=== PATIENT | male | born 1990 | race Caucasian/White ===

== ENCOUNTER 2018-01-12 12:43 | Inpatient (IN) | payer OTHER ==
[~2018-01-12] VITALS: Ht 182.9 cm; Wt 190.0 kg
[~2018-01-12 12:43] MED LIST: ETOMIDATE 40 MG/20 ML ONE; MIDAZOLAM 1 MG/ML, 5ML ONE; PROPOFOL 10 MG/ML, 100ML IV ONE; SUCCINYLCHOLINE 20 MG/ML, 10ML ONE; VECURONIUM 10 MG ONE
[2018-01-12] MEDS ORDERED: ALBUTEROL/IPRATROPIUM 2.5MG/0.5MG, 3 ML ONE (13:13)
[2018-01-12 13:25] LABS: MEAN CORPUSCULAR HEMOGLOBIN 30.2 pg (27.5-34.5); MEAN CORPUSCULAR VOLUME 88.9 fL (81-97); MEAN PLATELET VOLUME 9.7 fL (7.4-10.4); PLATELET COUNT 298 x10^3/uL (130-400); RED BLOOD COUNT 6.14 x10^6/uL (4.38-5.82); RED CELL DISTRIBUTION WIDTH 13.6 % (9.4-14.8)
[2018-01-12] MEDS ORDERED: ALBUTEROL/IPRATROPIUM 2.5MG/0.5MG, 3 ML NPPB ONE (13:30)
[2018-01-12] MEDS ORDERED: SODIUM CHLORIDE FLUSH 10ML SYR IVF ONE (13:30)
[2018-01-12 13:33] LABS: INTERNATIONAL NORMALIZED RATIO 1.04 (0.93-1.1); PROTHROMBIN TIME 10.8 Seconds (9.6-11.5)
[2018-01-12 13:35] LABS: ALANINE AMINOTRANSFERASE 66 U/L (12-78); ALBUMIN 3.4 g/dL (3.4-5.0); ANION GAP 9 mmol/L (5-15); CHLORIDE 105 mmol/L (98-107); CREATININE 0.95 mg/dL (0.7-1.3)
[2018-01-12] MEDS ORDERED: methylPREDNISolone SOD SUCC 125 MG/2 ML ONE (13:38)
[2018-01-12 13:39] LABS: ALKALINE PHOSPHATASE 79 U/L (45-117); BILIRUBIN,TOTAL 0.5 mg/dL (0.2-1.0); TOTAL PROTEIN 7.9 g/dL (6.4-8.2); TROPONIN I 0.057 ng/mL (0.000-0.045)
[2018-01-12] MEDS ORDERED: CEFTRIAXONE PMX 1GM/50ML 50 ML ONE (13:39)
[2018-01-12 13:44] LABS: BASOPHILS # (AUTO) 0.19 x10^3/uL (0-0.1); BASOPHILS % (AUTO) 1 % (0-1); EOSINOPHILS # (AUTO) 0.02 x10^3/uL (0-0.4); EOSINOPHILS % (AUTO) 0 % (1-7); LYMPHOCYTES # (AUTO) 1.29 x10^3/uL (1-3.4); LYMPHOCYTES % (AUTO) 7 % (22-44); MD SCAN; MONOCYTES # (AUTO) 0.81 x10^3/uL (0.2-0.8); MONOCYTES % (AUTO) 4 % (2-9); NEUTROPHILS % (AUTO) 88 % (42-75)
[2018-01-12] MEDS ORDERED: methylPREDNISolone SOD SUCC 125 MG/2 ML IVP ONE (14:00)
[2018-01-12] MEDS ORDERED: VANCOMYCIN PER PHARMACY MC PRN (14:00)
[2018-01-12] MEDS ORDERED: CEFTRIAXONE 1,000 MG in SODIUM CHLORIDE 0.9% 50 ML IVPB ONE (14:00)
[2018-01-12] MEDS ORDERED: VANCOMYCIN 2,400 MG in SODIUM CHLORIDE 0.9% 500 ML IV ONE (14:30)
[2018-01-12] MEDS ORDERED: ONDANSETRON 2MG/ML, 2ML IVPush ONE ×2 (15:00)
[2018-01-12] MEDS ORDERED: VECURONIUM 10 MG IVPush ONE (15:30)
[2018-01-12] MEDS ORDERED: MIDAZOLAM 1 MG/ML, 5ML IVPush ONE (15:30)
[2018-01-12] MEDS ORDERED: SUCCINYLCHOLINE 20 MG/ML, 10ML IVPush ONE (15:30)
[2018-01-12] MEDS ORDERED: SODIUM CHLORIDE FLUSH 10ML SYR IVF PRN (15:30)
[2018-01-12] MEDS ORDERED: ETOMIDATE 40 MG/20 ML IVPush ONE (15:30)
[2018-01-12] MEDS ORDERED: PROPOFOL 100 ML IV ONE (15:33)
[2018-01-12] MEDS ORDERED: ENOXAPARIN 40 MG/0.4 ML SQ SCH (16:30)
[2018-01-12] MEDS ORDERED: BISACODYL 10 MG SUPP PR PRN ×2 (16:30→17:00)
[2018-01-12] MEDS ORDERED: CEFTRIAXONE 1,000 MG IM SCH (16:30)
[2018-01-12] MEDS ORDERED: ONDANSETRON 2MG/ML, 2ML IVPush PRN (16:30)
[2018-01-12] MEDS ORDERED: DOCUSATE 100 MG CAPSULE PO PRN (16:30)
[2018-01-12] MEDS ORDERED: POLYETHYLENE GLYCOL 17 GM PACKET PO PRN (16:30)
[2018-01-12] MEDS ORDERED: LIDODERM 5% PATCH TD PRN (16:30)
[2018-01-12] MEDS ORDERED: ENALAPRILAT 1.25 MG/ML, 2ML IVPush PRN (16:30)
[2018-01-12 16:53] LABS: CULTURE INDICATED? YES; MICROSCOPIC INDICATED
[2018-01-12 17:00] LABS: AMPHETAMINE SCREEN, URINE Negative (Negative); BARBITURATE SCREEN, URINE Negative (Negative); BENZODIAZEPINE SCREEN, URINE Negative (Negative); CANNABINOID SCREEN, URINE Positive (Negative); COCAINE SCREEN, URINE Positive (Negative); METHADONE SCREEN, URINE Negative (Negative); OPIATE SCREEN, URINE Negative (Negative)
[2018-01-12] MEDS ORDERED: LACTULOSE 20 GM/30 ML UDC NG PRN (17:00)
[2018-01-12] MEDS ORDERED: GLUCAGON 1 MG IM PRN (17:00)
[2018-01-12] MEDS ORDERED: SENNOSIDES 8.8 MG/5 ML ORAL SOL NG PRN (17:00)
[2018-01-12] MEDS ORDERED: DEXTROSE 4 GM TAB.CHEW PO PRN (17:00)
[2018-01-12] MEDS ORDERED: DEXTROSE 50%, 50ML SYRINGE IVPush PRN (17:00)
[2018-01-12] MEDS ORDERED: PHARMACY MAY ADJ FOR RENAL FX MC SCH (17:00)
[2018-01-12] MEDS ORDERED: SENNA/DOCUSATE TABLET NG PRN (17:00)
[2018-01-12] MEDS ORDERED: SODIUM CHLORIDE 0.9% 1,000ML IVBOLUS ONE (17:00)
[2018-01-12] MEDS: methylPREDNISolone SOD SUCC 125 MG/2 ML IVPush SCH ×2 (17:24→23:08)
[2018-01-12] MEDS: THIAMINE 100MG TABLET PO SCH (17:24)
[2018-01-12] MEDS: HEPARIN 5,000 UNITS/ML, 1ML SQ SCH (17:24)
[2018-01-12] MEDS: INSULIN LISPRO 100 UNITS/ML, PEN SQ-INSULIN SCH ×2 (17:37→21:00)
[2018-01-12] MEDS: AMPICILLIN/SULBACTAM 3 GM in SODIUM CHLORIDE 0.9% 100 ML IV SCH ×2 (17:40→23:02)
[2018-01-12] MEDS: PROPOFOL 100 ML IV PRN ×4 (17:40→23:01)
[2018-01-12] MEDS: AZITHROMYCIN 500 MG in SODIUM CHLORIDE 0.9% 250 ML IV SCH (17:40)
[2018-01-12] MEDS: ALBUTEROL/IPRATROPIUM 2.5MG/0.5MG, 3 ML INLINE SCH ×2 (19:13→22:18)
[2018-01-12] MEDS: MIDAZOLAM HCL 50 MG in SODIUM CHLORIDE 0.9% 240 ML IV PRN (19:42)
[2018-01-12] MEDS: SODIUM CHLORIDE FLUSH 10ML SYR IVF SCH (21:40)
[2018-01-13] MEDS: HEPARIN 5,000 UNITS/ML, 1ML SQ SCH ×3 (00:59→16:33)
[2018-01-13] MEDS: PROPOFOL 100 ML IV PRN ×8 (00:59→23:06)
[2018-01-13] MEDS: MIDAZOLAM HCL 50 MG in SODIUM CHLORIDE 0.9% 240 ML IV PRN (02:16)
[2018-01-13] MEDS: ALBUTEROL/IPRATROPIUM 2.5MG/0.5MG, 3 ML INLINE SCH ×6 (02:58→22:25)
[2018-01-13 03:58] VITALS: BP 110/55
[2018-01-13 04:35] LABS: BASOPHILS # (AUTO) 0.05 x10^3/uL (0-0.1); BASOPHILS % (AUTO) 0 % (0-1); EOSINOPHILS % (AUTO) 0 % (1-7); LYMPHOCYTES # (AUTO) 0.92 x10^3/uL (1-3.4); LYMPHOCYTES % (AUTO) 6 % (22-44); MD NO; MEAN CORPUSCULAR HEMOGLOBIN 29.6 pg (27.5-34.5); MEAN CORPUSCULAR HGB CONC 33.3 g/dL (33.2-36.2); MEAN CORPUSCULAR VOLUME 88.7 fL (81-97); MEAN PLATELET VOLUME 9.5 fL (7.4-10.4); MONOCYTES # (AUTO) 0.36 x10^3/uL (0.2-0.8); MONOCYTES % (AUTO) 2 % (2-9); NEUTROPHILS # (AUTO) 14.39 x10^3/uL (1.8-6.8); NEUTROPHILS % (AUTO) 92 % (42-75); PLATELET COUNT 268 x10^3/uL (130-400); RED BLOOD COUNT 5.56 x10^6/uL (4.38-5.82); RED CELL DISTRIBUTION WIDTH 13.5 % (9.4-14.8)
[2018-01-13] MEDS: AMPICILLIN/SULBACTAM 3 GM in SODIUM CHLORIDE 0.9% 100 ML IV SCH ×4 (04:35→23:09)
[2018-01-13] MEDS: methylPREDNISolone SOD SUCC 125 MG/2 ML IVPush SCH ×4 (04:36→23:06)
[2018-01-13 04:45] LABS: ALBUMIN 2.9 g/dL (3.4-5.0); ANION GAP 7 mmol/L (5-15); CALCIUM 8.5 mg/dL (8.5-10.1); CHLORIDE 108 mmol/L (98-107)
[2018-01-13 04:49] LABS: ALANINE AMINOTRANSFERASE 44 U/L (12-78); ALKALINE PHOSPHATASE 61 U/L (45-117); BILIRUBIN,TOTAL 0.3 mg/dL (0.2-1.0); CREATININE 0.97 mg/dL (0.7-1.3); TOTAL PROTEIN 6.9 g/dL (6.4-8.2)
[2018-01-13 04:53] LABS: HEMOGLOBIN A1C 5.9 % (4.2-6.3)
[2018-01-13] MEDS: INSULIN LISPRO 100 UNITS/ML, PEN SQ-INSULIN SCH ×4 (05:26→20:55)
[2018-01-13] MEDS: PANTOPRAZOLE 40 MG IV IVPush SCH (07:29)
[2018-01-13] MEDS ORDERED: PANTOPRAZOLE 40 MG IV IV SCH (09:00)
[2018-01-13] MEDS: SODIUM CHLORIDE FLUSH 10ML SYR IVF SCH ×2 (09:30→19:29)
[2018-01-13] MEDS: QUETIAPINE 25MG TABLET PO SCH ×2 (09:30→16:33)
[2018-01-13] MEDS: LIDOCAINE-MPF 1%, 2ML ENDO PRN (11:43)
[2018-01-13] MEDS ORDERED: LIDOCAINE 1%, 2ML INFIL ONE (12:00)
[2018-01-13] MEDS: AZITHROMYCIN 500 MG in SODIUM CHLORIDE 0.9% 250 ML IV SCH (16:01)
[2018-01-13] MEDS: THIAMINE 100MG TABLET PO SCH (16:33)
[2018-01-14] MEDS: QUETIAPINE 25MG TABLET PO SCH ×4 (01:02→23:52)
[2018-01-14] MEDS: HEPARIN 5,000 UNITS/ML, 1ML SQ SCH ×3 (01:02→16:30)
[2018-01-14] MEDS: PROPOFOL 100 ML IV PRN ×11 (01:05→23:00)
[2018-01-14] MEDS: ALBUTEROL/IPRATROPIUM 2.5MG/0.5MG, 3 ML INLINE SCH ×6 (02:16→22:04)
[2018-01-14] MEDS: FENTANYL PF 100 MCG/2ML IVPush PRN ×4 (02:46→22:50)
[2018-01-14 04:00] VITALS: BP 115/50
[2018-01-14 04:44] LABS: ANION GAP 4 mmol/L (5-15); BASOPHILS # (AUTO) 0.03 x10^3/uL (0-0.1); BASOPHILS % (AUTO) 0 % (0-1); CALCIUM 8.7 mg/dL (8.5-10.1); CHLORIDE 110 mmol/L (98-107); CREATININE 0.81 mg/dL (0.7-1.3); EOSINOPHILS # (AUTO) 0.01 x10^3/uL (0-0.4); EOSINOPHILS % (AUTO) 0 % (1-7); LYMPHOCYTES # (AUTO) 0.96 x10^3/uL (1-3.4); LYMPHOCYTES % (AUTO) 7 % (22-44); MD NO; MEAN CORPUSCULAR HEMOGLOBIN 30.2 pg (27.5-34.5); MEAN CORPUSCULAR HGB CONC 33.8 g/dL (33.2-36.2); MEAN CORPUSCULAR VOLUME 89.3 fL (81-97); MEAN PLATELET VOLUME 9.8 fL (7.4-10.4); MONOCYTES # (AUTO) 0.89 x10^3/uL (0.2-0.8); MONOCYTES % (AUTO) 6 % (2-9); NEUTROPHILS # (AUTO) 12.19 x10^3/uL (1.8-6.8); NEUTROPHILS % (AUTO) 87 % (42-75); PLATELET COUNT 263 x10^3/uL (130-400); RED CELL DISTRIBUTION WIDTH 13.6 % (9.4-14.8)
[2018-01-14] MEDS: AMPICILLIN/SULBACTAM 3 GM in SODIUM CHLORIDE 0.9% 100 ML IV SCH ×4 (05:07→23:49)
[2018-01-14] MEDS: methylPREDNISolone SOD SUCC 125 MG/2 ML IVPush SCH (05:07)
[2018-01-14] MEDS: INSULIN LISPRO 100 UNITS/ML, PEN SQ-INSULIN SCH (05:08)
[2018-01-14] MEDS: PANTOPRAZOLE 40 MG IV IVPush SCH (08:26)
[2018-01-14] MEDS: SODIUM CHLORIDE FLUSH 10ML SYR IVF SCH ×2 (08:27→23:49)
[2018-01-14] MEDS: THIAMINE 100MG TABLET PO SCH (16:29)
[2018-01-14] MEDS: LIDOCAINE-MPF 1%, 2ML ENDO PRN ×2 (20:20→22:48)
[2018-01-15] MEDS: ACETAMINOPHEN 325 MG TABLET PO PRN (00:09)
[2018-01-15] MEDS: HEPARIN 5,000 UNITS/ML, 1ML SQ SCH ×3 (00:09→18:27)
[2018-01-15] MEDS: FENTANYL PF 100 MCG/2ML IVPush PRN ×2 (01:20→04:05)
[2018-01-15] MEDS: LIDOCAINE-MPF 1%, 2ML ENDO PRN (01:28)
[2018-01-15] MEDS: ALBUTEROL/IPRATROPIUM 2.5MG/0.5MG, 3 ML INLINE SCH ×3 (02:07→10:31)
[2018-01-15] MEDS: PROPOFOL 100 ML IV PRN ×4 (02:15→07:59)
[2018-01-15 04:00] VITALS: BP 147/78
[2018-01-15 04:31] LABS: BASOPHILS # (AUTO) 0.09 x10^3/uL (0-0.1); BASOPHILS % (AUTO) 1 % (0-1); EOSINOPHILS # (AUTO) 0.02 x10^3/uL (0-0.4); EOSINOPHILS % (AUTO) 0 % (1-7); LYMPHOCYTES # (AUTO) 2.79 x10^3/uL (1-3.4); LYMPHOCYTES % (AUTO) 24 % (22-44); MD NO; MEAN CORPUSCULAR HEMOGLOBIN 30.6 pg (27.5-34.5); MEAN CORPUSCULAR HGB CONC 34.4 g/dL (33.2-36.2); MEAN CORPUSCULAR VOLUME 88.9 fL (81-97); MEAN PLATELET VOLUME 9.3 fL (7.4-10.4); MONOCYTES # (AUTO) 1.06 x10^3/uL (0.2-0.8); MONOCYTES % (AUTO) 9 % (2-9); NEUTROPHILS # (AUTO) 7.59 x10^3/uL (1.8-6.8); NEUTROPHILS % (AUTO) 66 % (42-75); PLATELET COUNT 223 x10^3/uL (130-400); RED BLOOD COUNT 4.88 x10^6/uL (4.38-5.82); RED CELL DISTRIBUTION WIDTH 13.6 % (9.4-14.8)
[2018-01-15 04:39] LABS: ANION GAP 8 mmol/L (5-15); CALCIUM 8.6 mg/dL (8.5-10.1); CHLORIDE 113 mmol/L (98-107); CREATININE 0.81 mg/dL (0.7-1.3); TRIGLYCERIDES 530 mg/dL (50-200)
[2018-01-15] MEDS: AMPICILLIN/SULBACTAM 3 GM in SODIUM CHLORIDE 0.9% 100 ML IV SCH ×3 (05:44→22:10)
[2018-01-15] MEDS: INSULIN LISPRO 100 UNITS/ML, PEN SQ-INSULIN SCH (09:00)
[2018-01-15] MEDS: PANTOPRAZOLE 40 MG IV IVPush SCH (09:21)
[2018-01-15] MEDS: QUETIAPINE 25MG TABLET PO SCH (09:22)
[2018-01-15] MEDS: SODIUM CHLORIDE FLUSH 10ML SYR IVF SCH ×2 (09:22→22:11)
[2018-01-15] MEDS: hydrALAzine 20 MG/ML, 1ML IVPush PRN (10:47)
[2018-01-15] MEDS ORDERED: LIDOCAINE-MPF 1%, 5ML ONE (10:59)
[2018-01-15] MEDS ORDERED: LIDOCAINE-MPF 2%, 2ML MM PRN (11:30)
[2018-01-15] MEDS: ALBUTEROL/IPRATROPIUM 2.5MG/0.5MG, 3 ML NPPB SCH ×2 (15:30→20:45)
[2018-01-16] MEDS: HEPARIN 5,000 UNITS/ML, 1ML SQ SCH ×3 (02:07→18:22)
[2018-01-16] MEDS: AMPICILLIN/SULBACTAM 3 GM in SODIUM CHLORIDE 0.9% 100 ML IV SCH ×3 (02:07→18:22)
[2018-01-16] MEDS: hydrALAzine 20 MG/ML, 1ML IVPush PRN (02:08)
[2018-01-16 04:00] VITALS: BP 168/90
[2018-01-16 05:30] LABS: ANION GAP 8 mmol/L (5-15); CALCIUM 8.4 mg/dL (8.5-10.1); CHLORIDE 108 mmol/L (98-107); CREATININE 0.59 mg/dL (0.7-1.3)
[2018-01-16 06:26] LABS: BASOPHILS # (AUTO) 0.28 x10^3/uL (0-0.1); BASOPHILS % (AUTO) 3 % (0-1); EOSINOPHILS % (AUTO) 3 % (1-7); LYMPHOCYTES # (AUTO) 1.83 x10^3/uL (1-3.4); LYMPHOCYTES % (AUTO) 17 % (22-44); MD NO; MEAN CORPUSCULAR HEMOGLOBIN 29.8 pg (27.5-34.5); MEAN CORPUSCULAR HGB CONC 33.5 g/dL (33.2-36.2); MEAN CORPUSCULAR VOLUME 89.1 fL (81-97); MEAN PLATELET VOLUME 8.6 fL (7.4-10.4); MONOCYTES # (AUTO) 0.61 x10^3/uL (0.2-0.8); MONOCYTES % (AUTO) 6 % (2-9); NEUTROPHILS # (AUTO) 7.91 x10^3/uL (1.8-6.8); NEUTROPHILS % (AUTO) 73 % (42-75); PLATELET COUNT 201 x10^3/uL (130-400); RED BLOOD COUNT 4.94 x10^6/uL (4.38-5.82)
[2018-01-16] MEDS: ALBUTEROL/IPRATROPIUM 2.5MG/0.5MG, 3 ML NPPB SCH ×4 (07:00→18:54)
[2018-01-16] MEDS: SODIUM CHLORIDE FLUSH 10ML SYR IVF SCH ×2 (08:32→21:00)
[2018-01-16] MEDS: PANTOPRAZOLE 40 MG IV IVPush SCH (08:32)
[2018-01-16] MEDS: INSULIN LISPRO 100 UNITS/ML, PEN SQ-INSULIN SCH (08:33)
[2018-01-16 19:24] VITALS: BP 160/91
[2018-01-17] MEDS: AMPICILLIN/SULBACTAM 3 GM in SODIUM CHLORIDE 0.9% 100 ML IV SCH ×3 (00:18→11:14)
[2018-01-17] MEDS: HEPARIN 5,000 UNITS/ML, 1ML SQ SCH ×2 (01:42→09:40)
[2018-01-17 02:28] VITALS: BP 147/92
[2018-01-17] MEDS: ALBUTEROL/IPRATROPIUM 2.5MG/0.5MG, 3 ML NPPB SCH (07:00)
[2018-01-17 07:57] VITALS: BP 167/91
[2018-01-17] MEDS: SODIUM CHLORIDE FLUSH 10ML SYR IVF SCH (08:13)
[2018-01-17] MEDS ORDERED: ALBUTEROL/IPRATROPIUM 2.5MG/0.5MG, 3 ML NPPB PRN (09:00)
[2018-01-17] MEDS: ACETAMINOPHEN 325 MG TABLET PO PRN (12:37)
[2018-01-17 13:02] VITALS: BP 138/86
[2018-01-17] MEDS ORDERED: AMOX1TAB61 PO (14:10)
== END 2018-01-17 17:08 | disposition home or self-care (01) | DRG 871 ==
LOC: ED 15:14 → CCU 15:15 → ED 16:43 → 3NW 01-16 11:59
PROVIDERS: ADMIT Hospitalist; ATTEND Hospitalist
PROC: 02HV33Z Insertion of Infusion Device into Superior Vena Cava, Percutaneous Approach (ICD-10-PCS; principal; 2018-01-12)
PROC: B548ZZA Ultrasonography of Superior Vena Cava, Guidance (ICD-10-PCS; 2018-01-12)
PROC: 0BH17EZ Insertion of Endotracheal Airway into Trachea, Via Natural or Artificial Opening (ICD-10-PCS; 2018-01-12)
PROC: 5A1945Z Respiratory Ventilation, 24-96 Consecutive Hours (ICD-10-PCS; 2018-01-12)
PROC: 5A09357 Assistance with Respiratory Ventilation, Less than 24 Consecutive Hours, Continuous Positive Airway Pressure (ICD-10-PCS; 2018-01-12)
DX: A41.9 Sepsis, unspecified organism (principal); J18.9 Pneumonia, unspecified organism; J96.01 Acute respiratory failure with hypoxia; Z99.11 Dependence on respirator [ventilator] status; J98.11 Atelectasis; Z68.43 Body mass index [BMI] 50.0-59.9, adult; E66.01 Morbid (severe) obesity due to excess calories; R73.9 Hyperglycemia, unspecified; G47.33 Obstructive sleep apnea (adult) (pediatric); I10 Essential (primary) hypertension; F17.200 Nicotine dependence, unspecified, uncomplicated; F14.10 Cocaine abuse, uncomplicated; T38.0X5A Adverse effect of glucocorticoids and synthetic analogues, initial encounter; Z72.89 Other problems related to lifestyle; Y92.89 Other specified places as the place of occurrence of the external cause
CPT/HCPCS: 36415; 36600; 84145; 99291; 99292; J7620; 71045; 80048; 80053; 80307; 81001; 82803; 82962; 83036; 83605; 83735; 83880; 84100; 84478; 84484; 85025; 85610; 85730; 87040; 87070; 87081; 87086; 87205; 93005; 93880; 94002; 94003; 94150; 94640; 94660; 96374; 96375; C8929; G0378; J0295; J0456; J0696; J1644; J2250; J2405; J2704; J3010; J3370; J3490; C9113; J0330; J0360; J1815; J2930; J7030; J7040; J7050